=== PATIENT | male | born 1985 | race Caucasian/White ===

== ENCOUNTER 2016-06-24 08:04 | Emergency (ER) | payer OTHER ==
[2016-06-24] MEDS ORDERED: BENZONATATE 100 MG CAPSULE PO STA (09:40)
[2016-06-24] MEDS ORDERED: BENZONATATE 100 MG CAPSULE PO ONE (09:46)
== END 2016-06-24 10:26 | disposition home or self-care (01) ==
DX: J06.9 Acute upper respiratory infection, unspecified (principal)
CPT/HCPCS: 71020; 99283; A9270